=== PATIENT | female | born 1955 | race Caucasian/White ===

== ENCOUNTER 2024-05-07 14:09 | Outpatient (CLI) | payer MEDICARE, BC, SELFPAY ==
--- NOTE | ~2024-05-07 | CT_ITS ---
EXAMINATION: CT LE LT wo con DATE: 05/07/2024 14:24 INDICATION: Left knee osteoarthritis for preoperative planning TECHNIQUE: High resolution computed tomography (CT) of the left lower extremity from the hip through the ankle was performed without intravenous contrast. Additional sagittal and coronal reconstructions were performed. Automated exposure control and iterative reconstruction technique were employed. The dose-length product was 1785.72 mGy-cm. COMPARISON: None FINDINGS: Tricompartmental osteoarthritis at the left knee, severe in the medial compartment, moderate in the p atellofemoral compartment and mild in the lateral compartment with minimal secondary genu varum. Corbett ux valgus with moderate osteoarthritis of the first metatarsophalangeal joint. Additional moderate os teoarthritis at the second-fourth tarsal metatarsal joints. Mild osteoarthritis at the left hip, ankl e and multiple additional joints in the left foot. Soft tissues are unremarkable with no left hip, ne ar ankle joint effusions. Prominent sigmoid diverticulosis without adjacent from trace stranding to s uggest diverticulitis. 2.2 cm right adnexal cyst. No free fluid in the pelvis. No pathologically enla rged pelvic or inguinal lymphadenopathy. IMPRESSION: 1. Severe medial compartment predominant tricompartmental osteoarthritis at the left knee. Reviewed, dictated and finalized at location B.
[2024-05-07 15:25] LABS: Hematocrit 39.9 % (37.0-47.0); Hemoglobin 13.1 g/dL (12.0-15.0)
[2024-05-07 15:36] LABS: Albumin Level 4.3 g/dL (3.5-5.1); Estimated Glomerular Filt Rate > 60; Glucose 93 mg/dL (65-110)
== END 2024-05-07 14:10 | disposition home or self-care (01) ==
LOC: ANHIMG 14:11
PROVIDERS: Visit Provider Orthopaedic Surgery
DX: M17.12 Unilateral primary osteoarthritis, left knee (principal); E78.5 Hyperlipidemia, unspecified
CPT/HCPCS: 36415; 73700; 82040; 82565; 82947; 85014; 85018

== ENCOUNTER 2024-07-20 09:42 | Outpatient (CLI) | payer MEDICARE, BC, SELFPAY ==
--- OUTSIDE RECORDS SUMMARY | 2024-07-20 10:42 | XMS_ITS | Clinical Summary ---
Author Organization [facility] Address [address] [facility], [place] [address] Phone Care Team Providers Care Printer Technician Name Role Phone Levon Kimble MD Primary Care Provider Allergies Active Allergy Reactions Criticality Noted Date Comments Codeine Nausea 02/06/2017 Medications losartan-hydroc hlorothiazide (HYZAAR) 50-12.5 MG Tablet Take 1 Tab by mouth daily. Active albuterol (PROVENTIL HFA) 108 (90 Base) MCG/ACT Aerosol Solution take 2 Puffs by inhalation every 4 hours as needed. Active Active Problems Problem Noted Date Diagnosed Date BROOKS on CPAP 02/06/2017 Non morbid obesity 02/06/2017 Mild intermittent asthma with acute exacerbation 02/06/2017 Social History Tobacco Use Types Packs/Day Years Used Date Smoking Tobacco: Former Smokeless Tobacco: Never Alcohol Use Standard Drinks/Week Comments No 0 (1 standard drink = 0.6 oz pur e alcohol) Comments No Sex and Gender Information Value Date Recorded Sex Assigned at Not on file Legal Sex Female 10:10 PM CDT Gender Identity Not on file Sexual Orientation Not on file Last Filed Vital Signs Vital Sign Reading Time Taken Comments Blood Pressure 142/94 09/25/2017 10:06 AM CDT Pulse 76 09/25/2017 10:06 AM CDT Temperature 36.6 C (97.8 F) 09/25/2017 10:06 AM CDT Respiratory Rate 18 09/25/2017 10:06 AM CDT Oxygen Saturation 95% 09/25/2017 10:06 AM CDT Inhaled Oxygen Concentration - - Weight 89.4 kg (197 lb) 09/25/2017 10:06 AM CDT Height 165.1 cm (5' 5) 09/25/2017 10:06 AM CDT Body Mass Index 32.78 09/25/2017 10:06 AM CDT Plan of Treatment Health Maintenance Due Date Last Done Comments DEXA Bone Density 1955 Hepatitis C Virus (HCV) Screening 1955 Mammogram 1955 TdaP Immunization 1955 Colonoscopy 05/08/2000 Colorectal Cancer Screening 05/08/2000 Cologuard 05/08/2005 Immunochemical Fecal Occult Blood 05/08/2005 Zoster Immunization (1 of 2) 05/08/2005 Respiratory Syncytial Virus (RSV) Immunization (Adult) (1 - Risk 60-74 years 1-dose series) 2015 Pneumococcal Immunization (50+ years) (2 of 2 - PPSV23) 02/04/2019 12/10/2018 SARS-COV-2 Immunization ( season) 2023 11/29/2022, 12/26/2021, 07/13/2021, Additional history exists Influenza Immunization (Season Ended) 2024 10/18/2022, 12/14/2021, 11/10/2020, Additional history exists Pneumococcal Immunization Combined Discontinued 12/10/2018 Hepatitis B Immunization Aged Out No longer eligible based on patient's age to complete this topic Human Papillomavirus (HPV) Immunization Aged Out No longer eligible based on patient's age to complete this topic Meningococcal Immunization (ACWY) Aged Out No longer eligible based on patient's age to complete this topic Rotavirus Immunization Aged Out No lo nger eligible based on patient's age to complete this topic Insurance MEDICARE Care Teams Printer Technician Relationship Specialty Start Date End Date Levon Kimble MD [address] [place] [id number] PCP - General Family Medicine 02/06/17
--- NOTE | 2024-07-20 11:03 | ECG_ITS ---
Test Date: 2024-07-20 11:14:12 Measurements Intervals [place] Rate: 60 P: 110 ME: 177 QRS: 21 QRSD: 166 T: 58 QT: 434 QTc: 434 Interpretive Statements ELECTRONIC ATRIAL PACEMAKER LEFT BUNDLE BRANCH BLOCK BASELINE ARTIFACT- I, II, III, AVR, AVL, AVF, V1-V6 ABNORMAL ECG No previous ECG available for comparison Electronically Signed On 07-20-2024 11:21:26 CDT by Louis Gonzalez D.O.
[2024-07-20 12:15] LABS: Basophils Absolute Auto 0.1 K/mm3 (0.0-0.1); Basophils Percent Auto 0.8 % (0.2-1.2); Eosinophils Absolute Auto 0.2 K/mm3 (0-0.3); Hematocrit 38.7 % (37.0-47.0); Hemoglobin 12.2 g/dL (12.0-15.0); Immature Granulocyte Absolute 0.02 K/mm3 (0.00-0.031); Immature Granulocyte Percent A 0.3 % (0-0.5); Lymphocytes Absolute Auto 1.87 K/mm3 (0.9-3.2); Lymphocytes Percent Auto 23.7 % (18.3-44.2); Mean Corpuscular HGB Conc 31.5 g/dl (32-36); Mean Corpuscular Hemoglobin 30.2 pg (26-34); Mean Corpuscular Volume 95.8 fl (80-100); Mean Platelet Volume 12.7 fl (7.4-10.4); Monocytes Absolute Auto 0.5 K/mm3 (0.1-0.6); Monocytes Percent Auto 6.2 % (2.6-8.5); Neutrophils Absolute Auto 5.3 K/mm3 (1.3-6.7); Platelet Count Result 216 k/mm3 (150-375); Red Blood Count 4.04 M/mm3 (4.2-5.4); Red Cell Distribution Width 13.2 % (11.5-14.5); White Blood Count 7.9 K/mm3 (4.5-10.0)
[2024-07-20 12:25] LABS: Albumin Level 4.3 g/dL (3.5-5.1); Hemoglobin A1C 5.1 % (<5.7); Urine Cotinine NEGATIVE
[2024-07-20 12:28] LABS: Anion Gap 7 mmol/L (4-12); Blood Urea Nitrogen 21 mg/dL (7-17); Calcium 10.7 mg/dL (8.4-10.2); Carbon Dioxide 27 mmol/L (22-30); Chloride 106 mmol/L (98-107); Estimated Glomerular Filt Rate > 60; Glucose 91 mg/dL (65-110); Potassium 4.1 mmol/L (3.4-5.0); Sodium 140 mmol/L (137-145)
[2024-07-20 13:26] LABS: MRSA (PCR) NOT DETECTED (NOT DETECTE)
== END 2024-07-20 09:43 | disposition home or self-care (01) ==
LOC: ANHSURGERY 09:50
PROVIDERS: Anesthesiology; Visit Provider Orthopaedic Surgery
DX: Z01.818 Encounter for other preprocedural examination (principal); M17.12 Unilateral primary osteoarthritis, left knee; I10 Essential (primary) hypertension
CPT/HCPCS: 36415; 80048; 80307; 82040; 83036; 85025; 87641; 93005

== ENCOUNTER 2024-08-18 01:10 | Day surgery (SDC) | payer MEDICARE, BC, SELFPAY ==
[2024-07-20 09:54] VITALS: BMI 36.1
--- NOTE | 2024-07-20 10:15 | PC.NURSE ---
Report to the Outpatient Waiting Room, entrance under the green pavilion located off [facility], at time _9 am on date __08/18/24 . Planned Procedure Time: __11 am .? Time changes happen often and if your time is changed the preop area will call you the afternoon before. - You and your visitor will be asked to self-screen and do not enter if you have any COVID symptoms. Please call surgeon if you need to reschedule. - A mask is optional within the hospital at this time. Patients may have clear liquids (water, carbonated beverages, clear teas, apple juice) until 3 hours prior to surgery ( 8 am) with a maximum of 20 ounces. - No food from midnight until time of surgery and no smoking, or chewing tobacco (or any form of nicotine). No chewing gum, candy or mints. Take only the following medications with a SIP of water on the morning of surgery: __TRELEGY ELLIPTA INHALER DO NOT STOP ANY OF YOUR OTHER PRESCRIPTION MEDICATIONS PRIOR TO SURGERY EXCEPT THE FOLLOWING Hold all vitamins and supplements for 3 days per anesthesiologist.LAST 08/14/24 Medications to discontinue per physician ___HOLD ASPIRIN AND ALEVE 7 DAYS PRE OP PER DR ARDON. [facility] WILL CALL PATIENT ABOUT LOVENOX BRIDGE MAY CONTINUE CELECOXIB BUT DO NOT TAKE MORNING OF SURGERY MAY TAKE TYLENOL Date to take last dose___08/10/24 Please no make-up, nail swiss, hairspray, perfume, deodorant, or body powder the day of surgery.? No jewelry (including any body piercings) or valuables the day of surgery, leave them at home.? Please take a shower or bath the night before, or the morning of, surgery with an antibacterial soap.? Wear comfortable, loose fitting clothing.? Children are encouraged to wear pajamas. - Jewelry must be removed prior to entering the operating room.? Rings and piercings that are not removed may be cut off. - The hospital will not accept responsibility for valuables.? - Please leave all valuables, including medications, at home the day of surgery. If you are going home after surgery, a licensed trailer truck driver must drive you home.? - NO public transportation without another adult if you receive anesthesia. - We recommend that an adult stay with you for 24 hours following discharge. - We also recommend that you do not drive, make important decision, drink alcoholic beverages, or take any drugs that were not prescribed by your health care provider for at least 24 hours after your discharge time. For Pediatric surgeries, we recommend two adults accompany the child home. Follow any additional instructions given to you from your surgeon. VERBAL AND WRITTEN instructions given to __PATIENT and asked if any additional questions and then verbalized understanding. Patient advised to call surgeon office or pre surgery nurse liaison [phone] if any additional questions.
[2024-07-20 11:05] VITALS: BP 143/72; PULSE 60; RESP 18; TEMP 36.8; O2SAT 97
[2024-08-18] VITALS (13 sets, daily range): BP systolic 107–156; BP diastolic 55–75; PULSE 69–87; RESP 13–18; TEMP 35.8–37; O2SAT 93–97; BMI 35.1
--- NOTE | ~2024-08-18 | XR_ITS ---
EXAMINATION: [id number] DATE: 08/18/2024 14:04 CDT INDICATION: Left total knee arthroplasty TECHNIQUE: 2 views left knee FINDINGS: There is a left total knee arthroplasty in expected position. Subcutaneous gas with fluid and air in the joint and overlying skin yanique are consistent with recent surgery. No evidence of pe riprosthetic fracture. IMPRESSION: 1. Recent left total knee arthroplasty. Reviewed, dictated and finalized at location A.
--- OUTSIDE RECORDS SUMMARY | 2024-08-18 01:59 | XMS_ITS | Clinical Summary ---
Author Organization [facility] Address [address] [facility], [place] [address] Phone Care Team Providers Care Apprise Counselor Name Role Phone Levon Kimble MD Primary Care Provider [phone] Allergies Active Allergy Reactions Criticality Noted Date [...] Screening 1955 Mammogram 1955 TdaP Immunization 1955 Cologuard 05/08/2000 Colonoscopy 05/08/2000 Colorectal Cancer Screening 05/08/2000 Immunochemical Fecal Occult Blood 05/08/2000 Zoster Immunization (1 of 2) 05/08/2005 Respiratory Syncytial Virus (RSV) Immunization (Adult) (1 - Risk 60-74 years 1-dose series) 2015 Pneumococcal Immunization (50+ years) (2 of 2 - PPSV23) 02/04/2019 12/10/2018 SARS-COV-2 Immunization ( season) 2023 11/29/2022, 12/26/2021, 07/13/2021, Additional history exists Influenza Immunization (#1) 2024 09/0 08/2022, 12/14/2021, 11/10/2020, Additional history exists Pneumococcal Immunization [...] complete this topic Insurance MEDICARE Care Teams Apprise Counselor Relationship Specialty Start Date End Date Levon Kimble MD [address] [place] [id number] PCP - General Family Medicine 02/06/17
[2024-08-18] MEDS: LACTATED RINGERS 1,000 ML 30 ML IV CONT ×2 (10:15→13:00)
[2024-08-18] MEDS: TRANEXAMIC ACID 1,000MG/ISO100 1,000 MG/100 ML BAG 200 MG IVPB (10:30)
[2024-08-18] MEDS: ACETAMINOPHEN 500 MG TABLET 1000 MG PO (10:30)
--- NOTE | 2024-08-18 10:51 | WPDANESEPPF ---
Anes - Initial Pre Proc Eval Procedure: Operation Date: 08/18/24 11:00 Proposed Procedures p Left Custom Total Knee Arthroplasty - Chaitanya Son MD Date/Time: 08/18/24 10:51 Surgeon: Chaitanya Son MD Pre Op Diagnosis: Prim OA Lt Knee Patient Data Age: 69 Gender: F Height: 1.61 m Weight: 94 kg Last Vital Signs Temp 98.3 F 07/20/24 11:05 Pulse 60 07/20/24 11:05 Resp 18 07/20/24 11:05 BP 143/72 H 07/20/24 11:05 Pulse Ox 97 07/20/24 11:05 O2 Del Method Room Air 07/20/24 11:05 Allergies Allergy/AdvReac Type Severity Reaction Status Date / Time atorvastatin (From Lipitor) AdvReac Joint Pain Verified 08/18/24 09:20 codeine AdvReac Nausea Verified 07/20/24 09:57 Home Medications ?Medication ?Instructions ?Recorded ?Confirmed ?Type losartan 100 1 tablet PO DAILY 06/20/22 07/20/24 History mg-hydrochlorothiazide 12.5 mg tablet albuterol sulfate 90 mcg/actuation 1 inh inhalation Q4H 07/20/22 07/20/24 History aerosol inhaler esomeprazole magnesium 20 mg 20 mg PO DAILY 07/20/22 07/20/24 History capsule,delayed release glucosamine sulfate 500 mg tablet 500 mg PO DAILY 07/20/22 07/20/24 History (Glucosamine) aspirin 81 mg chewable tablet 81 mg PO DAILY 07/20/24 07/20/24 History calcium carbonate (Calcium 600) 600 mg PO BID 07/20/24 07/20/24 History celecoxib 200 mg capsule 200 mg PO DAILY PRN pain #90 caps 07/20/24 07/20/24 Rx fluticasone fur. 100 mcg-umeclid 1 inh inhalation DAILY 07/20/24 07/20/24 History 62.5 mcg-vilant 25 mcg inhalat.powder (Trelegy Ellipta) losartan 100 1 tablet PO DAILY 07/20/24 07/20/24 History mg-hydrochlorothiazide 25 mg tablet magnesium 250 mg tablet 400 mg PO DAILY 07/20/24 07/20/24 History naproxen sodium 220 mg tablet 220 mg PO PRN PRN pain 07/20/24 07/20/24 History (Aleve) omega 9-nsn-ypx-fish oil 100 1 cap PO HS 07/20/24 07/20/24 History mg-160 mg-1,000 mg capsule (Fish Oil) turmeric 400 mg capsule mg PO DAILY 07/20/24 History Laboratory Tests 08/18/24 09:53 Blood Type A Positive Antibody Screen Pending Patient hx anesthesia problems: none Family hx anesthesia problems: none Results Review: All pre-operative results and documents have been reviewed as part of the pre-operative evaluation. [facility]LY [facility] Past Medical History Medical History Sleep apnea COPD (chronic obstructive pulmonary disease) Surgical History Surgical History History of ovarian cystectomy History of dental surgery History of appendectomy History of breast biopsy Family History Family History Other High cholesterol History of malignant neoplasm of breast History of malignant neoplasm of large intestine History of uterine cancer Hypertension Social History Social History Smoking packs per day: 1 Smoking cigarettes per day: 20.0 Years smoked: 30 Smoking pack-years: 30.00 Smoking status: Former smoker Tobacco type: cigarettes Smoking end date: 02/11/02 Additional smoking assessment comments: DENIES ANY FORM OF TOBACCO USE Alcohol intake: never Substance use: never Do You Feel Safe in your Home?: Yes Lack of Transportation: No Lack of Food: Never True Current Housing: I Have Housing Concerned About Future Housing: No Difficulty Paying Gas/Electric Bills: No Difficulty Paying for Meds: No Currently Unemployed: No Education: High School Diploma/GED Difficulty w/ Childcare or Family Care: No Living arrangements: with family Spiritual care concerns: No Anes - Eval Final PreProcedure Day of Procedure 08/18/24 10:51 Heart: regular rate and rhythm Lungs: clear to auscultation Airway: Mallampati scale class II Neurological: alert and oriented Last oral intake: >/= 8 hours ASA classification: III Emergent: no Anesthetic plan: proceed Anesthesia type and monitoring: general LMA and standard monitoring Results Review: All pre-operative results and documents have been reviewed as part of the pre-operative evaluation. Informed Consent: The patient's anesthetic plan and its attendant risks and benefits were discussed with the patient/family/POA. Questions were solicited and answers provided to the satisfaction of the patient/family/POA.
--- NOTE | 2024-08-18 10:52 | WPDHPUPDATE1 ---
History and Physical Update Update Date/Time: 08/18/24 10:52 History and Physical has been reviewed, including an updated exam of the patient. Ingrown toenail on contralateral foot is improving. No signs of gross purulence. Ok to proceed with surgery. Risks, benefits, and alternatives have been discussed and questions answered. Patient agrees to proceed with procedure.
[2024-08-18] MEDS: ceFAZolin 2 GM/D5W 50 ML 2 GM/50 ML BAG IVPB (10:58)
[2024-08-18] MEDS: SODIUM CHLORIDE 0.9% IV 37.7 ML, MORPHINE SULFATE INJ (*CRX) 2 MG, ROPivacaine HCL 1% 2... INFILTRATE (11:44)
[2024-08-18] MEDS: TRANEXAMIC ACID 1,000 MG/10 ML AMPUL 1000 MG IV PUSH (12:34)
[2024-08-18] MEDS: KETOROLAC 15 MG/ML VIAL (*BKC) IV PUSH (12:36)
[2024-08-18] MEDS: fentaNYL CITRATE INJ (*CRX) 100 MCG/2 ML VIAL 25 MCG IV PUSH ×6 (13:18→14:01)
--- NOTE | 2024-08-18 13:28 | W.PM.PROC2 ---
Procedure Note - Detailed Date of Procedure 08/18/24 Pre-op Diagnosis Prim OA Lt Knee Post-op Diagnosis Same Procedure Performed Custom total knee arthroplasty, left. Surgeon Chaitanya Son MD Anesthesia General Findings Good bone quality. Standard resections according to preoperative plan. Contralateral ingrown toenail cleaned post procedure. Description of Procedure Preoperative antibiotics were given. The limb was prepped and draped in the usual sterile fashion with a well-padded tourniquet high on the thigh. The limb was exsanguinated and the tourniquet inflated to 300 mmHg during exposure and bone resections. A longitudinal incision was created just medial to the patella. A trivector approach to the knee was performed. Arthrotomy was taken down through the joint capsule. No significant releases were initially taken. The femur was exposed and the F1 jig was applied. The coring tool was used to remove the cartilage for the F2 jig to sit flush with the bone. The jig was pinned and the distal cut carefully taken. Caliper measurements confirmed appropriate bony resections according to the preoperative templated plan. The F4 cutting jig for the femur was applied, at the standard rotation. The AP and anterior chamfer cuts were taken. The F5 jig was applied and the posterior chamfer cuts were taken. The tibia was prepared using the T1 jig, after removing cartilage for the jig contact points. Proper alignment was checked with the alignment mando. The tibia was cut using the T1u guide. Gap balancing was performed. Gap measurements were taken and the knee was trialed. Excellent alignment and soft tissue balancing was confirmed. The posterior cruciate ligament was recessed along the proximal tibia. The patella was cut for resurfacing. Three lug holes were drilled. Meniscal remnants were removed. The trial components were assembled. Excellent range of motion and proper soft tissue balancing were confirmed throughout the full range of motion. Patellar tracking was excellent. The knee was copiously irrigated periodically throughout the procedure. The real implants were cemented into position. Excess cement was carefully removed. The wound was closed in layers with interrupted #1 Vicryl suture, 2-0 strata fix suture, 0 strata fix suture, 2-0 strata fix suture. Steri-Strips placed on the skin with the knee flexed. Sterile bulky dressing applied. The patient was brought to the recovery room in stable condition. There were no complications. Implants Conformis Custom total knee arthroplasty. Cemented. Cruciate retaining. 7C insert. 25 mm oval patella. Estimated Blood Loss 100 Tourniquet Time Total Tourniquet Time: 26 Drains No Complications No immediate complications Condition Stable Disposition PACU [facility] Billing Surgery - Charge Forward: Surgery Billing
[2024-08-18] MEDS: oxyCODONE/ACETAMINOPHEN (*CRX) 5-325 MG TABLET 1 TABLET PO (15:28)
[2024-08-18] MEDS: CALCIUM CARBONATE (OSCAL) 500 MG TABLET PO (18:23)
[2024-08-18] MEDS: SENNA/DOCUSATE SODIUM TABLET 2 TAB PO (18:23)
[2024-08-18] MEDS: ceFAZolin 2 GM in SODIUM CHLORIDE 0.9% IV 50 ML 100 ML IVPB (18:24)
[2024-08-18] MEDS: ONDANSETRON INJ 4 MG/2 ML VIAL IV PUSH (19:16)
[2024-08-18] MEDS: CELECOXIB 200 MG CAPSULE PO (20:34)
[2024-08-18] MEDS: APIXABAN 2.5 MG TABLET PO (20:34)
[2024-08-19] VITALS: BP 127/60; PULSE 80; RESP 13; TEMP 36.6; O2SAT 92
--- NOTE | 2024-08-19 01:45 | PCRCNOTE ---
Patient is refusing the albuterol mdi q4 due to only using it as a rescue inhaler at home. If pt feels she needs it, she will call Respiratory. RN aware.
--- NOTE | 2024-08-19 01:46 | PCRCNOTE ---
Window of time for administration has passed. See next scheduled administration.
[2024-08-19] MEDS: oxyCODONE/ACETAMINOPHEN (*CRX) 5-325 MG TABLET 1 TABLET PO ×2 (02:43→11:00)
[2024-08-19] MEDS: ceFAZolin 2 GM in SODIUM CHLORIDE 0.9% IV 50 ML 100 ML IVPB ×2 (02:43→10:20)
[2024-08-19 04:00] VITALS: BP 125/50; PULSE 83; RESP 16; TEMP 36.6; O2SAT 91
[2024-08-19 06:13] LABS: Hematocrit 34.2 % (37.0-47.0); Hemoglobin 11.2 g/dL (12.0-15.0); Immature Granulocyte Percent A 0.6 % (0-0.5); Lymphocytes Absolute Auto 1.35 K/mm3 (0.9-3.2); Mean Corpuscular HGB Conc 32.7 g/dl (32-36); Mean Corpuscular Hemoglobin 30.9 pg (26-34); Mean Corpuscular Volume 94.5 fl (80-100); Nucleated Red Blood Cells Absolute Auto 0.000 K/mm3 (0.0-0.012); Nucleated Red Blood Cells Perc 0.0 % (0.0-0.2); Platelet Count Result 188 k/mm3 (150-375); Red Blood Count 3.62 M/mm3 (4.2-5.4); White Blood Count 12.7 K/mm3 (4.5-10.0)
[2024-08-19 06:23] LABS: Anion Gap 8 mmol/L (4-12); Blood Urea Nitrogen 18 mg/dL (7-17); Calcium 9.5 mg/dL (8.4-10.2); Carbon Dioxide 25 mmol/L (22-30); Chloride 106 mmol/L (98-107); Estimated CRCL calculation 68 ml/min; Estimated Glomerular Filt Rate > 60; Glucose 109 mg/dL (65-110); Potassium 3.6 mmol/L (3.4-5.0); Sodium 139 mmol/L (137-145)
[2024-08-19 07:37] VITALS: BP 137/69; PULSE 66; RESP 16; TEMP 36.1; O2SAT 91
[2024-08-19] MEDS: APIXABAN 2.5 MG TABLET PO (08:02)
[2024-08-19] MEDS: SENNA/DOCUSATE SODIUM TABLET 2 TAB PO (08:02)
[2024-08-19] MEDS: MAGNESIUM OXIDE 400 MG TABLET PO (08:02)
[2024-08-19] MEDS: CALCIUM CARBONATE (OSCAL) 500 MG TABLET PO (08:02)
[2024-08-19] MEDS: ASPIRIN 81 MG CHEWABLE TABLET PO (08:02)
[2024-08-19] MEDS: LOSARTAN POTASSIUM 100 MG TABLET PO (08:02)
--- NOTE | 2024-08-19 08:15 | PM.PNORT ---
Progress Note: A&P Assessment and Plan (1) Status post total knee replacement, left: Code(s): Z96.652 - Presence of left artificial knee joint Status: Acute Plan Postop day 1 status post total knee. Doing well. Pain well controlled. Wound dressing intact. No significant edema. Calf nontender. Neurologic status intact. Right toe without erythema. Dressing intact. Discussed follow-up arrangements with Dr. Acevdeo in podiatry for early next week. Plan for local wound care and then after the knees healed in about 3 months a more definitive procedure can be performed. Continue oral antibiotics for 3 weeks. Okay to discharge home today. Subjective Subjective Date/Time Seen: 08/19/24 08:15 Objective Data Vital Signs Vital Signs: Vital Signs - 24 hr 08/18/24 09:00 08/18/24 13:00 08/18/24 13:15 Temperature 37.0 C 36.8 C Pulse Rate 70 87 84 Respiratory Rate 18 18 Blood Pressure 156/73 H 107/55 L 135/75 Pulse Oximetry 97 93 97 Oxygen Delivery Simple Face Mask Simple Face Mask Oxygen Flow Rate 15 10 08/18/24 13:30 08/18/24 13:45 08/18/24 14:00 Temperature Pulse Rate 85 83 80 Respiratory Rate 13 16 14 Blood Pressure 128/62 123/67 146/67 H Pulse Oximetry 95 96 96 Oxygen Delivery Nasal Cannula Nasal Cannula Nasal Cannula Oxygen Flow Rate 4 2 2 08/18/24 14:15 08/18/24 14:40 08/18/24 14:45 Temperature 36.0 C L 36.0 C L Pulse Rate 75 70 75 Respiratory Rate 17 16 18 Blood Pressure 128/67 129/59 L 141/62 H Pulse Oximetry 96 97 94 Oxygen Delivery Nasal Cannula Oxygen Flow Rate 2 08/18/24 15:25 08/18/24 15:44 08/18/24 16:25 Temperature 36.2 C L 35.8 C L Pulse Rate 69 69 79 Respiratory Rate 18 18 16 Blood Pressure 133/66 138/70 Pulse Oximetry 95 95 95 Oxygen Delivery Nasal Cannula Oxygen Flow Rate 2 08/18/24 20:00 08/18/24 20:00 08/19/24 00:00 Temperature 36.2 C L 36.6 C Pulse Rate 79 80 Respiratory Rate 14 13 Blood Pressure 146/69 H 127/60 Pulse Oximetry 94 92 Oxygen Delivery Room Air Oxygen Flow Rate 08/19/24 04:00 08/19/24 07:37 Temperature 36.6 C 36.1 C L Pulse Rate 83 66 Respiratory Rate 16 16 Blood Pressure 125/50 L 137/69 Pulse Oximetry 91 91 Oxygen Delivery Oxygen Flow Rate Intake/Output Intake/Output: Intake & Output 08/16/24 08/17/24 08/18/24 08/19/24 23:59 23:59 23:59 23:59 Intake Total 300 550 Balance 300 550 Meds/Results Medications: Active Medications Generic Name Dose Route Start Last Admin Trade Name Freq PRN Reason Stop Dose Admin Acetaminophen 500 mg 08/18/24 14:15 Acetaminophen 500 Mg Tablet PO Q6H PRN Pain Rated 1-3 Albuterol 1 puff 08/18/24 17:00 08/19/24 04:52 Albuterol Sulfate (*Sp) Aerosol 1 Puff INHALATION Not Given Q4HR [facility] Apixaban 2.5 mg 08/18/24 21:00 08/19/24 08:02 Apixaban 2.5 Mg Tablet PO 08/30/24 09:01 2.5 mg Q12HR BONNIE Administration Aspirin 81 mg 08/19/24 09:00 08/19/24 08:02 Aspirin 81 Mg Chewable Tablet PO 81 mg DAILY BONNIE Administration Calcium Carbonate 500 mg 08/18/24 17:00 08/19/24 08:02 Calcium Carbonate (Oscal) 500 Mg Tablet PO 500 mg BID BONNIE Administration Celecoxib 200 mg 08/18/24 14:15 08/18/24 20:34 Celecoxib 200 Mg Capsule PO 200 mg DAILY PRN Administration pain Diphenhydramine HCl 25 mg 08/18/24 14:15 Diphenhydramine Hcl Inj 50 Mg/Ml Vial IV PUSH Q6H PRN Itching Fluticasone/Umeclidinium/Vilanterol 1 puff 08/19/24 09:00 Fluticasone/Umeclidin/Vilanter 100-62.5-25 Mcg Ellipta INHALATION DAILY [facility] Hydrochlorothiazide 25 mg 08/19/24 09:00 08/19/24 08:02 Hydrochlorothiazide 25 Mg Tablet PO 25 mg DAILY BONNIE Administration Hydromorphone HCl 1 mg 08/18/24 14:15 Hydromorphone Hcl Inj (*Crx) 1 Mg/Ml Syr IV PUSH Q2H PRN Breakthrough Pain Rated 7-10 or NPO Hydromorphone HCl 0.5 mg 08/18/24 14:15 Hydromorphone Hcl Inj (*Crx) 1 Mg/Ml Syr IV PUSH Q2H PRN Breakthrough Pain Rated 4-6 or NPO Cefazolin Sodium 2 gm/ Sodium 50 mls @ 100 mls/hr 08/18/24 19:00 08/19/24 02:43 Chloride IVPB 08/19/24 11:29 100 mls/hr Q8H BONNIE Administration Losartan Potassium 100 mg 08/19/24 09:00 08/19/24 08:02 Losartan Potassium 100 Mg Tablet PO 100 mg DAILY BONNIE Administration Magnesium Oxide 400 mg 08/19/24 09:00 08/19/24 08:02 Magnesium Oxide 400 Mg Tablet PO 400 mg DAILY BONNIE Administration Naloxone HCl 0.1 mg 08/18/24 14:15 Naloxone Hcl 0.4 Mg/Ml Vial IV PUSH Q2M PRN Opiate Reversal Non-Formulary Medication 1 each 08/18/24 15:11 Nonformulary Nutritional Supplement XX 08/19/24 15:10 PRN PRN PROTOCOL Ondansetron HCl 4 mg 08/18/24 14:15 08/18/24 19:16 Ondansetron Inj 4 Mg/2 Ml Vial IV PUSH 4 mg Q4H PRN Administration Nausea And Vomiting Oxycodone/Acetaminophen 1 tablet 08/18/24 14:15 08/19/24 02:43 Oxycodone/Acetaminophen (*Crx) 5-325 Mg Tablet PO 1 tablet Q4H PRN Administration Pain Rated 4-6 Oxycodone/Acetaminophen 1 tab 08/18/24 14:15 Oxycodone/Acetaminophen (*Crx) 10-325 Mg Tablet PO Q6H PRN Pain Rated 7-10 Polyethylene Glycol 17 gm 08/19/24 09:00 08/19/24 08:02 Polyethylene Glycol 3350 17 Gm Powd.Pack PO 17 gm QAM BONNIE Administration Prednisone 5 mg 08/19/24 08:00 08/19/24 08:02 Prednisone 5 Mg Tablet PO 5 mg DAILY@0800 BONNIE Administration Senna/Docusate Sodium 2 tab 08/18/24 17:00 08/19/24 08:02 Senna/Docusate Sodium Tablet PO 2 tab BID BONNIE Administration Radiology Results: ITS Impressions Knee X-Ray 08/18/24 14:04 IMPRESSION: 1. Recent left total knee arthroplasty. Labs Labs: Laboratory Results - last 24 hr 08/18/24 08/19/24 09:53 05:10 WBC 12.7 H RBC 3.62 L Hgb 11.2 L Hct 34.2 L MCV 94.5 MCH 30.9 MCHC 32.7 RDW 13.7 Plt Count 188 MPV 12.0 H Immature Gran % (Auto) 0.6 H Neut % (Auto) 81.1 H Lymph % (Auto) 10.6 L [place] % (Auto) 7.3 Eos % (Auto) 0.1 Baso % (Auto) 0.3 Lymph # (Auto) 1.35 [place] # (Auto) 0.9 H Eos # (Auto) 0.0 Baso # (Auto) 0.0 Abs Immat Gran (auto) 0.07 H Absolute Neuts (auto) 10.3 H Absolute Nucleated RBC 0.000 Nucleated RBC % 0.0 Sodium 139 Potassium 3.6 Chloride 106 Carbon Dioxide 25 Anion Gap 8 BUN 18 H Creatinine 0.73 Estim Creat Clear Calc 68 Estimated GFR > 60 Glucose 109 Calcium 9.5 Blood Type A Positive Antibody Screen Negative
[2024-08-19] MEDS: FLUTICASONE/UMECLIDIN/VILANTER 100-62.5-25 MCG ELLIPTA 1 PUFF INHALATION (09:28)
[2024-08-19 09:32] VITALS: O2SAT 93
--- NOTE | 2024-08-19 11:27 | PC.NURSE ---
This RN agrees with the charting and cares provided to this pt.
== END 2024-08-19 11:25 | disposition home or self-care (01) ==
LOC: ANHSURGERY 08:55 → ANH3MEDSUR 14:25
PROVIDERS: Visit Provider Orthopaedic Surgery
PROC: (CPT 27447; principal; 2024-08-18 11:00)
DX: M17.12 Unilateral primary osteoarthritis, left knee (principal); J44.9 Chronic obstructive pulmonary disease, unspecified; G47.30 Sleep apnea, unspecified; Z79.51 Long term (current) use of inhaled steroids; Z79.82 Long term (current) use of aspirin; Z79.1 Long term (current) use of non-steroidal anti-inflammatories (NSAID); Z98.890 Other specified postprocedural states; Z87.891 Personal history of nicotine dependence; Z80.3 Family history of malignant neoplasm of breast; Z80.49 Family history of malignant neoplasm of other genital organs; Z80.0 Family history of malignant neoplasm of digestive organs
CPT/HCPCS: 27447; 36415; 73560; 80048; 85025; 86850; 86900; 86901; 94640; 97110; 97161; 97165; J0690; A9270; C1713; C1776; J0171; J1100; J1885; J2003; J2250; J2270; J2405; J2704; J2795; J3010; J3373; J7120; J7512